=== PATIENT | female | born 1960 | race Caucasian/White ===

== ENCOUNTER 2016-11-10 11:52 | Emergency (ER) | payer OTHER ==
[2016-11-10 12:00] VITALS: BP 116/77; PULSE 83; RESP 18; TEMP 98.1; O2SAT 99
[2016-11-10] MEDS ORDERED: TDAP ADULT 0.5 ML INJ (BOOSTRIX) IM ONE (12:15)
[2016-11-10] MEDS ORDERED: IBUPROFEN 600 MG TAB PO ONE (12:23)
--- NOTE | 2016-11-10 13:33 | EDPHY ---
H & P Stated Complaint: cut r 5th digit with saw - Personal History Current Tetanus/Diphtheria Vaccine: No - Medical/Surgical History Hx Asthma: Yes Hx Chronic Respiratory Disease: No Hx Diabetes: No Hx Cardiac Disease: No Hx Renal Disease: No Hx Cirrhosis: No Hx Alcoholism: No Hx HIV/AIDS: No Hx Splenectomy or Spleen Trauma: No Other PMH: PMH: hyperparathyroid, asthma, major depressive disorder. PSH: parathyroidectomy, left ovarian cyst removal - Social History Smoking Status: Never smoked Time Seen by Provider: 11/10/16 12:06 HPI/ROS: Chief complaint: Right hand laceration History of present illness: This is a 56-year-old female who presents to the emergency department for a right hand laceration. Patient was using a table saw just prior to arrival when she accidentally struck her right hand against it. She has noted a laceration to the right 5th finger and the palm. She reports considerable pain. She reports bleeding, she has been able to control it with application of a dressing. She denies other associated signs or symptoms including no paresthesias or abnormal coolness in the hand. She denies trauma to other parts of the body. She does not believe her tetanus shot is up-to-date. (Checo Moore) - Physical Exam Exam: General: Alert, nontoxic Skin: There is a 3 cm laceration to the distal aspect of the right 5th finger. There is also a 4 cm laceration to the hypo thenar region of the hand. Musculoskeletal: Patient is having difficulty moving the right 5th finger in the DIP and PIP joint. She can move the MCP joint. She is moving other fingers although it is difficult secondary to pain. She can move the wrist in all jung. Vascular: Capillary refill brisk in all fingers in the right hand. Radial pulses 2+. Neurologic: Sensation does appear to be intact in all fingers including the 5th fingers in this light touch and two-point discrimination (Checo Moore) Constitutional: Initial Vital Signs Temperature (C) 36.7 C 11/10/16 11:58 Heart Rate 83 11/10/16 11:58 Respiratory Rate 18 11/10/16 11:58 Blood Pressure 116/77 11/10/16 11:58 O2 Sat (%) 99 11/10/16 11:58 O2 Delivery Mode Room Air Allergies/Adverse Reactions: amoxicillin trihydrate [From Augmentin] Allergy (Intermediate, Verified 11:57) Hives potassium clavulanate [From Augmentin] Allergy (Verified 11/10/16 11:57) Home Medications: Medication Instructions Recorded Albuterol Sulfate [PROVENTIL HFA] 1 - 2 puffs IH Q4 PRN 04/11/16 Venlafaxine Xr [Effexor Xr] 150 mg PO HS 04/11/16 Ibuprofen [Motrin (*)] 600 mg PO Q6HRS PRN #0 tab 04/14/16 Ondansetron Odt [Zofran Odt 4 mg 4 mg PO Q4 #60 tab 04/14/16 (*)] Cephalexin [Keflex] 500 mg PO QID 7 Days 11/10/16 Hydrocodone/APAP 5/325 [[place] 1 tab PO Q6H #6 tab 11/10/16 5/325 (*)] Medical Decision Making - Diagnostics Imaging: I viewed and interpreted images myself - Diagnostics Imaging Results: Imaging Impressions Hand X-Ray 11/10/16 12:21 Impression: Open fracture involving the middle and distal phalanges of the right fifth digit with disruption of articular surfaces. Results called and discussed with GRZEGORZ Ryan, on 11/10/2016, at 1307 hours. Procedures: Procedure: Laceration repair. Verbal consent was obtained from the patient. The the 3 cm laceration on the right 5th finger was anesthetized in the usual fashion. The wound was irrigated , draped and explored to its base with a gloved finger. There were no deep structures involved. No tendon injury was identified. The wound was repaired with 5 0 Prolene. The wound repair was simple. The procedure was performed by myself. Procedure: Laceration repair. Verbal consent was obtained from the patient. The 4 cm laceration on the right hypo thenar region of the hand was anesthetized in the usual fashion. The wound was irrigated, draped and explored to its base with a gloved finger. There were no deep structures involved. No tendon injury was identified. The wound was repaired with 5 0 Prolene. The wound repair was simple. The procedure was performed by myself. Procedure: Splint placement. A volar splint was applied. After application of the splint I returned and re- examined the patient. The splint was adequately immobilizing the joint and distal to the splint the patient's circulation and sensation was intact. (Checo Moore) ED Course/Re-evaluation: Patient seen in conjunction with my secondary supervising physician Dr. Cesario Samano. Patient presents to the emergency department for right hand laceration. Hand does appear to be neurovascularly intact. She is having difficulty moving the right 5th finger. She does appear to have an open fracture of the right 5th finger. I have consulted with Dr. Amadeo Fontana. He is comfortable with primary closure, splinting, starting patient on antibiotics and having patient follow-up in clinic. This is performed. Her tetanus is also updated. Patient is discharged home. Home care is discussed. The importance of following up with hand surgery for definitive care is discussed. Return precautions are given. Patient voiced understanding and agreement with plan. (Checo Moore) Differential Diagnosis: Included but not limited to laceration, deep structure injury, foreign body contamination (Checo Moore) Other Provider: PHYSICIAN DOCUMENTATION: The patient was evaluated and managed by the Physician Feller Buncher Operator and myself. I have reviewed the chart and agree with the findings and plan of care as documented. In addition, I examined the patient myself. History confirmed as power tool injury. Physical findings as follows: No visible significant tissue loss. Discussed with on-call hand surgeon by PA: hand surgeon recommends: irrigation and primary closure, splint and antibiotics, office followup this week. I am the secondary supervising physician. (Cesario Samano) - Data Points Medications Given: Discontinued Medications Diphtheria/Tetanus/Acell Pertussis (Boostrix) 0.5 ml IM .ONCE ONE Stop: 11/10/16 12:16 Last Admin: 11/10/16 12:40 Dose: 0.5 ml Cefazolin Sodium/Dextrose (Ancef 1 Gm (Premix)) 50 mls @ 200 mls/hr IV EDNOW ONE PRN Reason: Protocol Stop: 11/10/16 13:18 Last Admin: 11/10/16 13:21 Dose: 50 mls Ibuprofen (Motrin) 600 mg PO EDNOW ONE Stop: 11/10/16 12:24 Last Admin: 11/10/16 12:41 Dose: Not Given Departure - Departure Disposition: Home, Routine, Self-Care Clinical Impression: Hand laceration Qualifiers: Encounter type: initial encounter Foreign body presence: without foreign body Laterality: right Qualified Code(s): S61.411A - Laceration without foreign body of right hand, initial encounter Fracture, finger, open Qualifiers: Encounter type: initial encounter Finger: little finger Phalanx: distal Fracture alignment: displaced Laterality: right Qualified Code(s): S62.636B - Displaced fracture of distal phalanx of right little finger, initial encounter for open fracture Condition: Good Instructions: Care For Your Stitches (ED), Laceration (ED), Acute Wounds (ED) Additional Instructions: Please call hand surgery and arrange a follow-up appointment in 1-2 days for recheck Take antibiotics as prescribed In regards to pain control see the following: Use ibuprofen [600] mg [3] times a day for the next 2-3 days for pain In addition You have been prescribed [[place]] for pain. [[place]] contains Tylenol, do not take extra Tylenol/acetaminophen/Apap with it. It is sedating. Elevate the injury as much as possible If symptoms worsen or new symptoms develop return to the emergency room for recheck Referrals: NONE *PRIMARY CARE P,. [Primary Care Provider] - As per Instructions Amadeo Fontana MD [Medical Doctor] - As per Instructions Prescriptions: Cephalexin [Keflex] 500 mg PO QID 7 Days Hydrocodone/APAP 5/325 [[place] 5/325 (*)] 1 tab PO Q6H #6 tab
== END 2016-11-10 15:09 | disposition home or self-care (01) ==
PROC: 0HQFXZZ Repair Right Hand Skin, External Approach (ICD-10-PCS; principal; 2016-11-10)
DX: S62.636B Displaced fracture of distal phalanx of right little finger, initial encounter for open fracture (principal); J45.909 Unspecified asthma, uncomplicated; S61.216A Laceration without foreign body of right little finger without damage to nail, initial encounter; Z23 Encounter for immunization; W27.0XXA Contact with workbench tool, initial encounter
CPT/HCPCS: 96365; J0690

== ENCOUNTER → 2016-12-10 | Outpatient (CLI) | payer OTHER | LOC: BMCIMAGING 09:48 | PROVIDERS: ATTEND Orthopaedic Surgery | DX: S61.421D Laceration with foreign body of right hand, subsequent encounter (principal); S63.29 Dislocation of distal interphalangeal joint of finger ==

== ENCOUNTER → 2017-01-07 | Outpatient (CLI) | payer OTHER | LOC: BMCIMAGING 09:05 | PROVIDERS: ATTEND Orthopaedic Surgery | DX: S62.636D Displaced fracture of distal phalanx of right little finger, subsequent encounter for fracture with routine healing (principal) ==

== ENCOUNTER → 2017-05-17 | Outpatient (CLI) | payer OTHER | LOC: FIMAGING 12:23 | PROVIDERS: ATTEND Family Medicine | DX: Z12.31 Encounter for screening mammogram for malignant neoplasm of breast (principal) | CPT/HCPCS: G0202 ==

== ENCOUNTER → 2017-07-01 | Outpatient (CLI) | payer OTHER | LOC: FIMAGING 10:14 | PROVIDERS: ATTEND Family Medicine | DX: Z13.820 Encounter for screening for osteoporosis (principal); M81.0 Age-related osteoporosis without current pathological fracture ==